=== PATIENT | female | born 1985 | race Caucasian/White ===

== ENCOUNTER 2021-10-30 15:57 | Emergency (ER) | payer MEDICARE, SELFPAY ==
[2021-10-30 16:08] VITALS: BP 132/85; PULSE 84; RESP 20; TEMP 36.6; O2SAT 99
--- NOTE | 2021-10-30 16:38 | ED.SOB ---
HPI - SOB/Dyspnea General Chief Complaint: Shortness of Breath/Dyspnea Stated Complaint: Shortness of Breath/Dizziness Time Seen by Provider: 10/30/21 16:28 Source: patient and RN notes reviewed Mode of arrival: ambulatory Limitations: no limitations History of Present Illness HPI Narrative: Patient presents today complaining of 4-day history of, cloudiness in the brain , sleeping 20+ hours per day, syncopal-like episodes where she loses consciousness and sleeps for many hours. Patient states when she stands she becomes very dizzy and has to find a place to lay down before she unwillingly falls asleep for many hours at home before waking up and feeling very groggy. She is also experiencing shortness of breath, sweats and chills, fatigue. She was vomiting yesterday, but has been able to keep down small amounts of fluid today. She was seen at another urgent care 5 days ago and placed on Augmentin and prednisone for sinusitis. She has finished the prednisone and is currently still taking the Augmentin. Denies chest pain, abdominal pain. MD elicited complaint: shortness of breath Related Data Home Medications Medication Instructions Recorded Confirmed amoxicillin-pot clavulanate 1 tablet PO Q12H 10/30/21 10/30/21 [Augmentin] Allergies Allergy/AdvReac Type Severity Reaction Status Date / Time Sulfa (Sulfonamide Allergy Intermediate Rash Verified 10/30/21 16:18 Antibiotics) Review of Systems Review of Systems: CONSTITUTIONAL: Denies body aches, fever. + Sweats, chills, fatigue EYES: Denies visual changes, redness, or discharge. ENT: Denies rhinorrhea, congestion, sore throat, or otalgia. CARDIOVASCULAR: Denies chest pain, palpitations, or edema. RESPIRATORY: Denies cough or dyspnea. GASTROINTESTINAL: Denies abdominal pain, nausea, or diarrhea.+ Vomiting GENITOURINARY: Denies dysuria or hematuria. SKIN: Denies rash, itching, or wounds. MUSCULOSKELETAL: Denies back pain, joint pain, or myalgia. NEUROLOGIC: Denies headache, numbness, tingling, or weakness.+ Syncope PSYCH: Denies depression or anxiety. PMFSH Comments At time of signature, I have reviewed and agree with nursing past medical, surgical, social and family history unless otherwise noted. Please see nursing chart for further information. There is no relevant family history pertinent to the presenting complaint Exam Narrative: GENERAL: Mildly ill-appearing, well-nourished, and in no acute distress. HEAD: Normocephalic, atraumatic. EYES: EOMI. No redness or drainage. Conjunctivae normal. ENT: Mucous membranes pink and slightly tacky. Nares clear. No rhinorrhea. TMs normal bilaterally. Throat normal. Uvula midline. NECK: Normal AROM. Supple. No lymphadenopathy. CHEST: No respiratory distress. Clear to auscultation. HEART: Regular rate and rhythm. No murmur appreciated. Normal peripheral pulses. EXTREMITIES: Normal range of motion. No edema. SKIN: Warm, dry, no rash. Capillary refill normal. Normal skin turgor. NEURO: No focal deficits. Alert and oriented x3. Gait steady. PSYCH: Normal affect. No signs of depression or anxiety. Course Course Level of Care: Express Care Visit Vital Signs Vital signs: Vital Signs Temperature 97.8 F 10/30/21 16:08 Pulse Rate 84 10/30/21 16:08 Respiratory Rate 20 10/30/21 16:08 Blood Pressure 132/85 10/30/21 16:08 Pulse Oximetry 99 10/30/21 16:08 Temperature 97.8 F 10/30/21 16:08 Pulse Rate 84 10/30/21 16:08 Respiratory Rate 20 10/30/21 16:08 Blood Pressure 132/85 10/30/21 16:08 Pulse Oximetry 99 10/30/21 16:08 Reviewed Transfer Transfered to: [facility] Transportation: Other (Private vehicle) Transfer rationale: Shortness of breath, syncopal episode Accepting physician: Hai LOPEZ - SOB/Dyspnea Differential Diagnosis Differential diagnosis: Likely other (Arrhythmia, syncope, near syncope, sepsis, blood sugar or electrolyte abnormality, dehydration) C
== END 2021-10-30 16:50 | disposition short-term general hospital (02) ==
PROVIDERS: Emergency Provider Nurse Practitioner
DX: R06.02 Shortness of breath (principal); R55 Syncope and collapse
CPT/HCPCS: 99212; G0463